=== PATIENT | female | born 1985 | race Caucasian/White ===

== ENCOUNTER 2019-05-13 07:59 | Emergency (ER) | payer MEDICAID ==
[~2019-05-13] VITALS: Ht 180.3 cm; Wt 96.4 kg
[2019-05-13 08:04] VITALS: BP 156/84
--- NOTE | 2019-05-13 08:24 | NUR ---
DR. CLARKE AT BEDSIDE.
[2019-05-13] MEDS ORDERED: dexamethasone sod phosphate 10mg/ml inj PO STA (09:21)
[2019-05-13] MEDS ORDERED: ACET-3067 PO (09:22)
[2019-05-13] MEDS ORDERED: ACET160S PO (09:37)
[2019-05-13] MEDS ORDERED: ACET12.53 PO (09:39)
== END 2019-05-13 09:45 | disposition home or self-care (01) ==
LOC: ER 08:00
DX: J02.9 Acute pharyngitis, unspecified (principal); Z88.2 Allergy status to sulfonamides; Z88.8 Allergy status to other drugs, medicaments and biological substances; Z79.899 Other long term (current) drug therapy
CPT/HCPCS: 87077; 87081; 87880; 99283; J1100

== ENCOUNTER 2020-02-10 14:37 | Emergency (ER) | payer MEDICAID ==
[~2020-02-10] VITALS: Ht 182.9 cm; Wt 105.0 kg
[~2020-02-10 14:37] MED LIST: ACET12.53 PO
--- NOTE | 2020-02-10 16:45 | NUR ---
Pt is calm and cooperative with staff at this time. Pt is awaiting further orders or interventions.
[2020-02-10] MEDS ORDERED: METF-950 PO (16:54)
[2020-02-10] MEDS ORDERED: QUET300T19 PO (16:54)
[2020-02-10] MEDS ORDERED: METF-436 PO (16:54)
[2020-02-10] MEDS ORDERED: GABA300C PO (16:54)
[2020-02-10] MEDS ORDERED: ATOR20TA66 PO (16:54)
[2020-02-10 17:01] LABS: BASOPHILS % (AUTO) 0.3 % (0-1); EOSINOPHILS % (AUTO) 0 % (0-6); HEMATOCRIT 43.8 % (35.0-45.0); HEMOGLOBIN 14.8 g/dl (12.0-16.0); LYMPHOCYTES % (AUTO) 23.5 % (21-51); MEAN CORPUSCULAR HEMOGLOBIN 29.1 PG (27.0-31.0); MEAN CORPUSCULAR HGB CONC 33.8 g/dL (33.0-36.5); MEAN CORPUSCULAR VOLUME 86.1 FL (78-98); MEAN PLATELET VOLUME 7.7 FL (7.4-10.4); MONOCYTES # (AUTO) 0.5 X10'3 (0-0.9); MONOCYTES % (AUTO) 5.3 % (2-12); NEUTROPHILS % (AUTO) 70.9 % (42-75); PLATELET COUNT 286 X10'3 (140-440); RED BLOOD COUNT 5.08 X10'6 (4.20-5.60); RED CELL DISTRIBUTION WIDTH 13.2 % (11.5-14.5); WHITE BLOOD COUNT 8.5 X10'3 (4.5-11.0)
[2020-02-10 17:11] LABS: ALANINE AMINOTRANSFERASE 26 U/L (12-78); ALBUMIN 4.6 G/DL (3.4-5.0); ALBUMIN/GLOBULIN RATIO 1.2 (1.1-1.5); ALKALINE PHOSPHATASE 69 IU/L (46-116); ANION GAP 10 (8-16); ASPARTATE AMINO TRANSFERASE 13 U/L (10-37); BILIRUBIN,TOTAL 1.5 MG/DL (0.1-1.0); BLOOD UREA NITROGEN 10 MG/DL (7-18); BUN/CREATININE RATIO 13.9 (6.6-38.0); CALCIUM 10.1 MG/DL (8.5-10.1); CHLORIDE 102 MMOL/L (99-107); CREATININE 0.72 MG/DL (0.40-0.90); GLUCOSE 150 MG/DL (70-104); POTASSIUM 4.2 MMOL/L (3.5-5.1); SODIUM 139 MMOL/L (135-145); TOTAL CARBON DIOXIDE 26.6 MMOL/L (24-32); TOTAL PROTEIN 8.4 G/DL (6.4-8.2); eGFR > 90 ML/MIN
[2020-02-10 17:17] LABS: ETHANOL < 0.010 GM/DL (0.0-0.010)
--- NOTE | 2020-02-10 17:45 | NUR ---
Pt placed in green scrubs and belongings collected and inventoried.
[2020-02-10] MEDS ORDERED: metFORMIN 500mg tablet PO SCH (18:00)
[2020-02-10 18:15] LABS: CLARITY,URINE CLEAR (Clear); COLOR,URINE YELLOW (Yellow); GLUCOSE, URINE NEGATIVE (Neg); KETONES,URINE NEGATIVE (Neg); LEUKOCYTE ESTERASE ,URINE NEGATIVE (Neg); NITRITES, URINE NEGATIVE (Neg); OCCULT BLOOD,URINE NEGATIVE (Neg); PROTEIN,URINE NEGATIVE (Neg); UROBILINOGEN,URINE 0.2 E.U/dL (0.2-1.0)
[2020-02-10 18:16] LABS: URINE HCG NEGATIVE (NEG)
[2020-02-10 18:32] LABS: UA COLLECTION TYPE CLN CATCH MIDSTREAM
--- NOTE | 2020-02-10 18:45 | NUR ---
Pt is awaiting an online zoom meeting for her AA then her phone will be secured with her other belongings.
[2020-02-10 19:06] LABS: URINE AMPHETAMINE SCREEN NEGATIVE (Neg); URINE BARBITUATE SCREEN NEGATIVE (Neg); URINE BENZODIAZEPINES SCREEN NEGATIVE (Neg); URINE CANNABINOID SCREEN POSITIVE (Neg); URINE COCAINE SCREEN NEGATIVE (Neg); URINE METHADONE SCREEN NEGATIVE (Neg); URINE OPIATE SCREEN NEGATIVE (Neg); URINE PHENCYCLIDINE SCREEN NEGATIVE (Neg)
--- NOTE | 2020-02-10 19:42 | NUR ---
Pt has a meal tray for dinner at this time.
[2020-02-10] MEDS ORDERED: quetiapine 100mg tablet PO SCH (21:00)
[2020-02-10] MEDS ORDERED: atorvastatin 20mg tablet PO SCH (21:00)
--- NOTE | 2020-02-10 21:00 | NUR ---
Received pt from main ER around 1999. Pt continues to endorse depression with intrusive thoughts. Pt states she feels safe here.
[2020-02-10] MEDS: gabapentin 300mg capsule PO SCH (21:28)
--- NOTE | 2020-02-10 23:00 | NUR ---
Pt laying in bed without compla Addendum: 02/10/20 at 2334 by BNELSON without complaints.
--- NOTE | 2020-02-11 01:00 | NUR ---
Pt sleeping peacefully without signs of distress.
--- NOTE | 2020-02-11 02:29 | NUR ---
Pt sleeping, lying on her right side with blankets covering to her chest. RR 14 and unlabored. Sitter and RN within view of Pt AAT.
--- NOTE | 2020-02-11 03:00 | NUR ---
Pt continued sleeping peacefully without distress.
--- NOTE | 2020-02-11 05:00 | NUR ---
Pt asleep in bed. Pt resting peacefully without distress.
--- NOTE | 2020-02-11 06:30 | NUR ---
Patient is laying down on her right side, RR is 14. Patient does not appear to be in any dostr Addendum: 02/11/20 at 0636 by [email or web address] - distress. Patient has fresh water available at the bedside.
[2020-02-11] MEDS ORDERED: metFORMIN 500mg tablet PO SCH (08:00)
[2020-02-11] MEDS ORDERED: atorvastatin 20mg tablet PO SCH (08:00)
[2020-02-11] MEDS: gabapentin 300mg capsule PO SCH (08:01)
--- NOTE | 2020-02-11 08:04 | NUR ---
Per policy, diet changed to carb control diet with history of typem II Addendum: 02/11/20 at 0804 by [email or web address] type II diabetes and hyperglycemia.
--- NOTE | 2020-02-11 08:30 | NUR ---
Patient is laying on her back, RR is 15. Patient is in no acute distress, affect is WNL. Patient has fresh water available at the bedside.
--- NOTE | 2020-02-11 08:46 | NUR ---
[facility] in with patient at this time.
--- NOTE | 2020-02-11 09:17 | NUR ---
Notified Dr. Schwartz of patients blood sugar, and administration of regular diet. Dr. Schwartz agrees with plan of care to continue to monitor the patient, and monitor for symptoms of hypo/hyperglycemia. Patientm reports that her blood sugars are usually well controlled with diet and Metformin. Will continue to monitor.
--- NOTE | 2020-02-11 10:15 | NUR ---
Patient has had belongings returned to her, she is waiting for her mother to come and pick her up. Patient is in no acute distress.
[2020-02-11 10:17] VITALS: BP 115/78
--- NOTE | 2020-02-11 10:22 | NUR ---
Patient escorted out by medical surgical aid, all belongings returned to patient.
== END 2020-02-11 10:25 | disposition home or self-care (01) ==
LOC: ER 14:37
DX: F32.9 Major depressive disorder, single episode, unspecified (principal); Z88.2 Allergy status to sulfonamides; Z88.8 Allergy status to other drugs, medicaments and biological substances; Z79.84 Long term (current) use of oral hypoglycemic drugs; Z79.899 Other long term (current) drug therapy
CPT/HCPCS: 36415; 80053; 80305; 80320; 81003; 81025; 82948; 85025; 99284

== ENCOUNTER 2022-11-14 12:22 | Emergency (ER) | payer MEDICAID ==
[~2022-11-14] VITALS: Ht 182.9 cm; Wt 106.0 kg
[~2022-11-14 12:22] MED LIST changes: -ACET12.53 PO; +ATOR20TA66 PO; +GABA300C PO; +LORA-269 PO; +METF-1203 PO; +METF-436 PO; +QUET300T20 PO
[2022-11-14] MEDS ORDERED: LORazepam 1 MG tablet PO ONE (13:40)
[2022-11-14] MEDS ORDERED: normal saline 1000ml 1,000 ML IV ONE (14:40)
[2022-11-14] MEDS ORDERED: haloperidol 5mg tablet PO ONE (14:40)
[2022-11-14] MEDS ORDERED: ATI1T PO (15:31)
[2022-11-14 16:00] VITALS: BP 127/83
== END 2022-11-14 16:02 | disposition home or self-care (01) ==
LOC: ER 12:23
DX: F41.9 Anxiety disorder, unspecified (principal); F41.0 Panic disorder [episodic paroxysmal anxiety]; R61 Generalized hyperhidrosis; E11.9 Type 2 diabetes mellitus without complications; F12.90 Cannabis use, unspecified, uncomplicated; Z88.2 Allergy status to sulfonamides
CPT/HCPCS: 82948; 93005; 99285; J7030

== ENCOUNTER 2024-09-01 19:08 | Emergency (ER) | payer MEDICAID ==
[~2024-09-01] VITALS: Ht 182.9 cm; Wt 103.2 kg
[~2024-09-01 19:08] MED LIST changes: +ATI1T PO
[2024-09-01 19:31] VITALS: BP 137/98; PULSE 110; TEMP 98.1; O2SAT 98
[2024-09-01 19:59] LABS: URINE HCG NEGATIVE (NEG)
[2024-09-01 20:01] VITALS: RESP 16
[2024-09-01] MEDS: ketorolac trometh 30MG/ML vial 30 MG/ML VIAL IM ONE (20:01)
[2024-09-01 20:04] LABS: BILIRUBIN,URINE NEGATIVE (Neg); CLARITY,URINE CLEAR (Clear); COLOR,URINE YELLOW (Yellow); GLUCOSE, URINE >=1000 mg/dl (Neg); KETONES,URINE NEGATIVE (Neg); LEUKOCYTE ESTERASE ,URINE NEGATIVE (Neg); NITRITES, URINE NEGATIVE (Neg); OCCULT BLOOD,URINE NEGATIVE (Neg); PROTEIN,URINE NEGATIVE (Neg); UROBILINOGEN,URINE 0.2 E.U/dL (0.2-1.0)
[2024-09-01 20:05] LABS: UA COLLECTION TYPE CLN CATCH MIDSTREAM
[2024-09-01 20:13] LABS: BACTERIA,URINE FEW /HPF (Neg); RBC,URINE NONE SEEN /HPF (0-2); SQUAMOUS EPITHELIAL CELL,UR MODERATE /LPF (FEW); WBC,URINE 0-4 /HPF (0-4)
[2024-09-01] MEDS ORDERED: TRAM50TA2 PO (20:28)
== END 2024-09-01 20:38 | disposition home or self-care (01) ==
LOC: ER 19:08
DX: M54.59 Other low back pain (principal); E11.65 Type 2 diabetes mellitus with hyperglycemia; F41.9 Anxiety disorder, unspecified; F32.A Depression, unspecified; F12.90 Cannabis use, unspecified, uncomplicated; F41.0 Panic disorder [episodic paroxysmal anxiety]; Z88.2 Allergy status to sulfonamides; Z79.899 Other long term (current) drug therapy; Z79.84 Long term (current) use of oral hypoglycemic drugs
CPT/HCPCS: 81001; 81025; 96372; 99283; J1885

== ENCOUNTER 2024-09-06 12:18 | Emergency (ER) | payer MEDICAID ==
[~2024-09-06] VITALS: Ht 182.9 cm; Wt 100.2 kg
[~2024-09-06 12:18] MED LIST changes: +TRAM50TA2 PO
[2024-09-06 12:31] VITALS: TEMP 98.7
[2024-09-06] MEDS: ketorolac trometh 15mg/ml vial 15 MG/ML ML IM ONE (15:14)
[2024-09-06] MEDS: dexamethasone sod phosphate 10mg/ml inj IM STA (15:14)
[2024-09-06] MEDS ORDERED: HYDR-3972 PO (16:36)
[2024-09-06 16:52] VITALS: BP 153/100; PULSE 78; RESP 15; O2SAT 99
== END 2024-09-06 16:50 | disposition home or self-care (01) ==
LOC: ER 12:19
DX: S32.029A Unspecified fracture of second lumbar vertebra, initial encounter for closed fracture (principal); E11.9 Type 2 diabetes mellitus without complications; Z88.1 Allergy status to other antibiotic agents; Z88.2 Allergy status to sulfonamides; Z88.8 Allergy status to other drugs, medicaments and biological substances; X58.XXXA Exposure to other specified factors, initial encounter; Y93.89 Activity, other specified; Y92.89 Other specified places as the place of occurrence of the external cause; Y99.8 Other external cause status
CPT/HCPCS: 72128; 72131; 96372; 99285; J1100; J1885

== ENCOUNTER 2024-11-22 10:51 | Emergency (ER) | payer MEDICAID ==
[~2024-11-22] VITALS: Ht 182.9 cm; Wt 98.6 kg
[2024-11-22 11:58] LABS: MEAN PLATELET VOLUME 7.7 FL (7.4-10.4); RED CELL DISTRIBUTION WIDTH 13.6 % (11.5-14.5)
--- NOTE | 2024-11-22 12:12 | Physician Documentation ---
History of Present Illness ~ Chief Complaint: Vaginal pain Stated Complaint: HEAVY BLEEDING Time Seen by MD: 12:12 Primary Medical Doctor: GATITO HORN IN [facility] This is a 39-year-old diabetic female who presented to the emergency department reporting six weeks of vaginal pain, itching, irritation. Denies concerns for sexually transmitted infections. No recent chills or fever, chest pain or shortness of breath. Notes that she was recently seen at [facility] by Urology for issues with incontinence. She had a pelvic exam at that time, and was subsequently treated for what was thought to be a vaginal yeast infection, although she shows me results on her phone that are negative for vaginal yeast and BV. Medication Reconciliation Allergies: Coded Allergies: sulfamethoxazole (Unverified Allergy, Unknown, 11/22/24) trimethoprim (Unverified Allergy, Unknown, 11/22/24) Scheduled Atorvastatin Calcium (Atorvastatin Calcium), 1 TAB PO DAILY, (Reported) Fluconazole* (Diflucan*), 1 TAB PO weekly Gabapentin (Neurontin), 1 CAP PO BID, (Reported) Metformin HCl (Metformin HCl), 1 TAB PO QAM, (Reported) Metformin Hcl (Metformin Hcl), 2 TAB PO QDD, (Reported) Quetiapine Fumarate (Quetiapine Fumarate), 1 TAB PO HS, (Reported) Triamcinolone Acetonide 0.1% Crm* (Kenalog 0.1% Crm*), 1 APPLIC TOP Q12H Scheduled PRN Lorazepam (Ativan), 1 TAB PO Q8H PRN for for anxiety/agitation Lorazepam (Ativan), 1 MG PO Q8H PRN ANXIETY PRN for for anxiety/agitation Tramadol HCl (Tramadol HCl), 1 TAB PO Q6H PRN PRN for pain Past Medical History Past Medical History: Diabetes, Anxiety, Depression, Panic Disorder Past Surgical History: noncontributory Alcohol Use: None Drug Use: marijuana Lives with: Family Lives In: Home Review of Systems ROS As stated above in the HPI, otherwise all systems are reviewed and negative. Physical Exam Vital Signs: Temperature: 98.2, Heart Rate: 115, Respiratory Rate: 18, BP: 124/98, Pulse Oximetry: 96, Weight: 98.640 Oxygen Flow Rate: 0 Physical Exam General: Alert, no apparent distress. Neck: Full range of motion. Respiratory: Lungs clear, no respiratory distress. Chest: No accessory muscle use. Cardiovascular: Regular rate and rhythm, no murmurs. Gastrointestinal: Soft, nontender, nondistended. Bowels sounds present. : Excoriated external labia and surrounding skin. Normal internal exam. No vaginal lesions or unusual discharge. Extremities: Normal range of motion, no deformity. Neurologic: Oriented x4. Psychiatric: Normal mood and affect. Skin: Normal color, warm and dry. No edema, no ecchymosis. Progress Progress Note 1300: Consultation via phone with reel operator Dr. Dodd who advises that patient appears to have contact dermatitis. Results/Orders Results/Orders Orders - NAVEED CUEVAS NP Pelvic Set Up (11/22/24 ) Chlam/Gc Amp Ur (11/22/24 12:37) Us Pelvis/With Duplex (11/22/24 12:53) Completed Orders - NAVEED CUEVAS NP Nilal Prep (Fungal Smear) (11/22/24 12:37) Hydrocodone/Apap 10/325 ([place] 10/325mg (11/22/24 12:55) Us Pelvis/With Duplex (11/22/24 12:53) Medications Received in ER Medications (Trade) Dose Ordered Sig/Christy Route PRN Reason Start Time Stop Time Status Last Admin Dose Admin ([place] 10/325mg tab) 1 tab ONCE ONCE PO 11/22/24 12:55 11/22/24 12:56 DC 11/22/24 14:09 1 TAB Vital Signs 11/22/24 11/22/24 11/22/24 11/22/24 10:55 12:44 13:05 14:06 Temp 98.2 Pulse 115 80 91 Resp 18 18 18 B/P (MAP) 124/98 138/93 (108) 122/82 (95) Pulse Ox 96 96 95 O2 Flow Rate 0 0 0 11/22/24 14:09 Resp 18 Laboratory Tests Test 11/22/24 11:23 11/22/24 11:36 Urine Specimen Description Cln catch midstream Urine Color Straw Urine Clarity Slightly cloudy Urine pH 6.0 Urine Specific [place] 1.015 Urine Protein Negative Urine Glucose (UA) >=1000 H Urine Ketones Trace H Urine Occult Blood Negative Urine Nitrite Negative Urine Bilirubin Negative Urine Urobilinogen 0.2 Urine Leukocyte Esterase Negative Urine RBC 3-10 Urine WBC 0-4 Urine Squamous Epithelial Cells Few Urine Transitional Epithelial Cells Few Urine Bacteria Few Urine Mucus Moderate Urine Culture Indicated Not ind Volume Urine Centrifuged 10 ml Urine HCG, Qualitative Negative Urine Comment White Blood Count 7.7 Red Blood Count 5.34 Hemoglobin 15.4 Hematocrit 45.8 H Mean Corpuscular Volume 85.7 Mean Corpuscular Hemoglobin 28.9 Mean Corpuscular Hemoglobin Concent 33.7 Red Cell Distribution Width 13.6 Platelet Count 237 Mean Platelet Volume 7.7 Neutrophils (%) (Auto) 74.0 Lymphocytes (%) (Auto) 20.2 L Monocytes (%) (Auto) 5.7 Eosinophils (%) (Auto) 0 Basophils (%) (Auto) 0.1 Neutrophils # (Auto) 5.7 Lymphocytes # (Auto) 1.5 Monocytes # (Auto) 0.4 Eosinophils # (Auto) 0.0 Basophils # (Auto) 0.0 CBC Comment Sodium Level 134 L Potassium Level 4.7 Chloride Level 97 L Carbon Dioxide Level 26.0 Anion Gap 11 Blood Urea Nitrogen 14 Creatinine 0.70 Estimated GFR/1.73 m2 > 90 BUN/Creatinine Ratio 20.0 Glucose Level 202 H Calcium Level 9.5 Total Bilirubin 1.4 H Aspartate Amino Transf (AST/SGOT) 42 H Alanine Aminotransferase (ALT/SGPT) 63 Alkaline Phosphatase 79 Total Protein 8.2 Albumin 4.3 Globulin 3.9 Albumin/Globulin Ratio 1.1 Lipase 65 Chemistry Comments Microbiology Date/Time Source Procedure Growth Status 11/22/24 12:36 Vaginal NIALL Preparation - Final Complete Medical Decision Making Additional Comment 39-year-old female with about six weeks of vaginal pain and rash on the external labia on surrounding skin. She was seen about a month ago by Urology at [facility] and treated presumptively for yeast infection. She was given topical nystatin and oral Diflucan, which she has been taking. At this has not been helpful. On exam, she was found to have external excoriation, with a lichen planus appearance. On-call Gynecology was consulted. Treatment plan was discussed. She will be treated with topical triamcinolone and also given Diflucan to prevent yeast infection while on this medication. She should see her primary care provider requested referral to Gynecology. Urinalysis with no signs of infection. Gonorrhea and chlamydia are pending at the time of discharge, and she is instructed to follow up on these results. She is further instructed to return if worse. Departure Time of Disposition: 14:06 Disposition: 01 HOME / SELF CARE / HOMELESS Impression: Primary Impression: Discomfort of vagina Additional Impression: Lichen planus Discharge Instructions: Lichen Planus, Vaginitis Additional Instructions: Normal pelvic u.s. Consultation was obtained with temporary receptionist reel operator, Dr. Dodd. You will be treated for contact dermatitis versus lichen planus. Use the prescribed cream to the external skin surrounding the vulva twice daily. Take the diflucan weekly as prescribed. See your primary care soon and request a referral to gynecology. Your gonorrhea and chlamydia results will be available through medical records within the next several days. Return if worse. Referrals: NO PRIMARY CARE PROVIDER (PCP) Prescriptions Fluconazole* (Diflucan*) 150 Mg Tablet 1 TAB PO weekly for 28 Days, #4 TAB Prov: ANVEED CUEVAS NP 11/22/24 Triamcinolone Acetonide 0.1% Crm* (Kenalog 0.1% Crm*) 1 Applic Tube 1 APPLIC TOP Q12H for 10 Days, #80 GM Prov: NAVEED CUEVAS NP 11/22/24 Education Educated: Patient Educated regarding: diagnosis, treatment, prognosis, need for follow up Signature Scribe Signature: x Attestation: The note accurately reflects work and decisions made by me.Naveed Perez NP 11/22/24 14:27 NAVEED CUEVAS NP Nov 22, 2024 12:12
[2024-11-22 12:16] LABS: CREATININE 0.70 MG/DL (0.40-0.90); TOTAL CARBON DIOXIDE 26.0 MMOL/L (24-32); eCRCL 125 ML/MIN; eGFR > 90 ML/MIN
[2024-11-22 12:38] LABS: URINE HCG NEGATIVE (NEG)
[2024-11-22 12:44] LABS: LEUKOCYTE ESTERASE ,URINE NEGATIVE (Neg); NITRITES, URINE NEGATIVE (Neg); OCCULT BLOOD,URINE NEGATIVE (Neg)
[2024-11-22 12:58] LABS: UA COLLECTION TYPE CLN CATCH MIDSTREAM
[2024-11-22 12:59] LABS: MUCUS STRANDS MODERATE /LPF (Neg); SQUAMOUS EPITHELIAL CELL,UR FEW /LPF (FEW)
[2024-11-22] MEDS: HYDROcodone/acetaminophen 10/325mg tab PO ONE (14:09)
[2024-11-22] MEDS ORDERED: DIF150T PO (14:10)
[2024-11-22] MEDS ORDERED: KEN0.1O TOP (14:10)
[2024-11-22 14:36] VITALS: BP 119/71; PULSE 83; RESP 16; TEMP 98.3; O2SAT 97
--- NOTE | 2024-11-22 19:54 | RADIOLOGY REPORT ---
INDICATION: pelvic pain TECHNIQUE: Multiple real-time grayscale transabdominal sonographic images along with color and duplex Doppler of the uterus and ovaries were obtained. COMPARISON: None FINDINGS: The uterus measures 6.2 x 3.3 x 4.8 cm. The endometrial stripe measures 7 cm. The right ovary measures 2.1 x 2.0 x 1.8 cm. An 8 mm follicle is noted. The left ovary measures 3.1 x 2.0 x 1.9 cm. A 7 mm follicle is noted. Subsequent color and duplex Doppler interrogation of the ovaries demonstrated symmetric vascular flow to both ovaries, though this does not exclude the possibility of torsion due to the dual blood suppl y. Small pelvic free fluid is noted. IMPRESSION: 1. Small pelvic free fluid is noted, possibly physiologic.
== END 2024-11-22 14:37 | disposition home or self-care (01) ==
LOC: ER 10:52
DX: L43.9 Lichen planus, unspecified (principal); E11.9 Type 2 diabetes mellitus without complications; F41.9 Anxiety disorder, unspecified; F32.A Depression, unspecified; F12.90 Cannabis use, unspecified, uncomplicated; F41.0 Panic disorder [episodic paroxysmal anxiety]; Z88.2 Allergy status to sulfonamides; Z88.8 Allergy status to other drugs, medicaments and biological substances; Z79.899 Other long term (current) drug therapy; Z79.84 Long term (current) use of oral hypoglycemic drugs
CPT/HCPCS: 36415; 76830; 76856; 80053; 81001; 81025; 83690; 85025; 87491; 87591; 93976; 99284; Q0112; J0690

== ENCOUNTER 2024-12-30 10:14 | Emergency (ER) | payer MEDICAID ==
[~2024-12-30] VITALS: Ht 182.9 cm; Wt 101.0 kg
--- NOTE | 2024-12-30 10:54 | Physician Documentation ---
History of Present Illness ~ Chief Complaint: Back Pain Stated Complaint: BACK PAIN Time Seen by MD: 11:14 Primary Medical Doctor: GATITO HORN IN [facility] 39-year-old female with a history of chronic low back pain and sciatica who presents today due to worsening of her pain. She also notes that it is now causing her pain higher up, and radiating down both legs. She denies saddle anesthesia or incontinence. Pain became worse on Thursday when she was bending over to leaf size picker soap in the shower. She saw her interventional pain specialist the same day that this occurred. She was given a Toradol shot and some muscle relaxants. She denies any improvement in the pain. Endorses significant stiffness. Medication Reconciliation Allergies: Coded Allergies: sulfamethoxazole (Unverified Allergy, Unknown, 11/22/24) trimethoprim (Unverified Allergy, Unknown, 11/22/24) Scheduled Atorvastatin Calcium (Atorvastatin Calcium), 1 TAB PO DAILY, (Reported) Gabapentin (Neurontin), 1 CAP PO BID, (Reported) Metformin HCl (Metformin HCl), 1 TAB PO QAM, (Reported) Metformin Hcl (Metformin Hcl), 2 TAB PO QDD, (Reported) Methylprednisolone (Medrol Dosepak), 0 PO UD Quetiapine Fumarate (Quetiapine Fumarate), 1 TAB PO HS, (Reported) Scheduled PRN Diazepam (Valium), 1 TAB PO HSPRN PRN for severe spasm Lorazepam (Ativan), 1 TAB PO Q8H PRN for for anxiety/agitation Lorazepam (Ativan), 1 MG PO Q8H PRN ANXIETY PRN for for anxiety/agitation Tramadol HCl (Tramadol HCl), 1 TAB PO Q6H PRN PRN for pain Past Medical History Past Medical History: Diabetes, Anxiety, Depression, Panic Disorder Past Surgical History: noncontributory Alcohol Use: None Drug Use: marijuana Lives with: Family Lives In: Home Review of Systems ROS As stated above in the HPI, otherwise all systems are reviewed and negative. Physical Exam Physical Exam Vital Signs: Temperature: 98.7, Source: Temporal, Heart Rate: 132, Respiratory Rate: 16, BP: 122/87, Pulse Oximetry: 94, Weight: 101.000 Oxygen Flow Rate: 0 Progress Results/Orders Results/Orders Completed Orders - NAVEED CUEVAS TOOL AND DIE REPAIR Diazepam Tablet (Valium Tablet) (12/30/24 11:30) Hydromorphone 0.5 Mg/0.5 Ml/Pf (Dilaudid (12/30/24 11:30) Naproxen Tablet (Naprosyn Tablet) (12/30/24 11:30) Medications Received in ER Medications (Trade) Dose Ordered Sig/Christy Route PRN Reason Start Time Stop Time Status Last Admin Dose Admin (Valium tablet) 10 mg ONCE ONCE PO 12/30/24 11:30 12/30/24 11:31 DC 12/30/24 11:36 10 MG (Dilaudid inj.) 0.5 mg ONCE ONCE IM 12/30/24 11:30 12/30/24 11:31 DC 12/30/24 11:37 0.5 MG (Naprosyn tablet) 500 mg ONCE ONCE PO 12/30/24 11:30 12/30/24 11:32 DC 12/30/24 11:36 500 MG Vital Signs 12/30/24 12/30/24 12/30/24 10:44 11:37 12:07 Temp 98.7 98.7 Pulse 132 82 Resp 16 16 16 B/P (MAP) 122/87 124/82 Pulse Ox 94 99 O2 Flow Rate 0 Medical Decision Making Differential Diagnosis Positive straight leg raise bilaterally. Weak but symmetrical patellar reflexes. Patient does have an appointment for an MRI on January 21. She is established with a an interventional seed specialist. She denies new incontinence, saddle anesthesia,and is able to stand and ambulate although with stiffness to the mid and low back. Requesting imaging, discussed that there was not a necessity for this in the absence of trauma or danger signs. She will be medicated for pain. She will then need to follow up with the primary care provider and her interventional pain specialist. Patient was pushing for opioids to go home with. She was questioning how she is supposed to manage the pain until her MRI appointment. Instructed patient that has not my habit to provide opioids for chronic pain, and that she will need to talk to her primary care. Ultimately, she was given three Valium 5 mg, and it is unclear if the pharmacy will fill these, as she has an existing prescription for lorazepam. She was insistent that she would take the Valium, and not utilize lorazepam. She does also have baclofen at home, gabapentin at home, and was thoroughly instructed in the danger signs of low back pain. She did indicate relief after treatment with 0.5 mg of IM Dilaudid and oral Valium given in the ER. She was seen to ambulate with out antalgic gait or difficulty after these interventions, and was discharged. Departure Time of Disposition: 11:31 Disposition: 01 HOME / SELF CARE / HOMELESS Impression: Primary Impression: Strain of thoracic region Additional Impressions: Strain of lumbar region Degenerative disc disease Condition: Stable Discharge Instructions: Chronic Back Pain, Lumbosacral Strain Additional Instructions: Danger signs of low back pain include new incontinence, new numbness in the groin, fever over 101 in a patient who has recently received an injection in the spine or utilizes intravenous drugs. It is good that you have an upcoming MRI. Please see your primary care provider soon for a recheck, and also follow up with Dr. Fowler. Return for the previously listed danger signs. Keep seeing your physical therapist. Keep taking your already prescribed medications. I see tramadol, Lyrica, and Lorazepam sent previously by other providers. Do NOT combine Valium with lorazepam. You said you're out of tramadol but I do not prescribe opioids for chronic back pain. Please see your PCP. Take the medrol dose pack, this may help with the pain/inflammation. I hope you feel better soon! Referrals: NO PRIMARY CARE PROVIDER (PCP) Prescriptions Diazepam (Valium) 5 Mg Tablet 1 TAB PO HSPRN PRN for severe spasm for 3 Days, #3 TAB 0 Refills Prov: NAVEED CUEVAS NP 12/30/24 Methylprednisolone (Medrol Dosepak) 4 Mg Tab.ds.pk 0 PO UD, #21 TAB 0 Refills take 6 Pills Day 1, 5 Pills Day 2, 4 Pills Day 3, 3 Pills Day 4, 2 Pills Day 5 and 1 pill Day 6 Prov: NAVEED CUEVAS NP 12/30/24 Education Educated: Patient, Family Educated regarding: diagnosis, treatment, prognosis, need for follow up Signature Scribe Signature: x Attestation: The note accurately reflects work and decisions made by me.Naveed Perez NP 12/30/24 10:53 NAVEED CUEVAS NP Dec 30, 2024 10:54
[2024-12-30] MEDS: HYDROmorphone inj. 0.5 MG/0.5 ML DISP.SYRIN IM ONE (11:37)
[2024-12-30] MEDS ORDERED: DIAZ5TAB PO ×2 (12:05→12:11)
[2024-12-30 12:07] VITALS: BP 124/82; PULSE 82; RESP 16; TEMP 98.7; O2SAT 99
[2024-12-30] MEDS ORDERED: METH4TAB81 PO (12:11)
== END 2024-12-30 12:15 | disposition home or self-care (01) ==
LOC: ER 10:15
DX: S39.012A Strain of muscle, fascia and tendon of lower back, initial encounter (principal); S29.012A Strain of muscle and tendon of back wall of thorax, initial encounter; M51.369 Other intervertebral disc degeneration, lumbar region without mention of lumbar back pain or lower extremity pain; F12.90 Cannabis use, unspecified, uncomplicated; F41.9 Anxiety disorder, unspecified; F32.A Depression, unspecified; E11.9 Type 2 diabetes mellitus without complications; Z88.2 Allergy status to sulfonamides; Z88.8 Allergy status to other drugs, medicaments and biological substances; Z79.899 Other long term (current) drug therapy; Z79.84 Long term (current) use of oral hypoglycemic drugs; X58.XXXA Exposure to other specified factors, initial encounter; Y93.89 Activity, other specified; Y92.89 Other specified places as the place of occurrence of the external cause; Y99.8 Other external cause status
CPT/HCPCS: 96372; 99283; J1171